=== PATIENT | male | born 1995 | race Caucasian/White ===

== ENCOUNTER 2024-12-26 20:20 | Inpatient (IN) | payer OTHER ==
[2024-12-26 21:26] LABS: HEMATOCRIT 44.8 % (35.4-49); HEMOGLOBIN 15.2 G/dL (11.7-16.9); MCHC 33.9 g/dl (32.0-35.9); MEAN CELL VOLUME 91.4 fl (80-96); MEAN PLT VOLUME 8.4 fl (7.5-11.1); PLATELET COUNT 342.2 10^3/uL (134-434); RDW 12.5 % (11.9-15.9); WHITE BLOOD COUNT 12.3 10^3/uL (4.0-10.8)
[2024-12-26 22:08] LABS: ALBUMIN 4.7 g/dl (3.4-5.0); BILIRUBIN,TOTAL 0.5 mg/dl (0.2-1); TOT PROT 7.8 g/dl (6.4-8.2)
[2024-12-26] MEDS ORDERED: ACETAMINOPHEN INJECTION 100 ML ONE (22:49)
[2024-12-26] MEDS: ACETAMINOPHEN 1000 MG/100 ML BAG IVPB ONE (23:04)
[2024-12-26] MEDS ORDERED: PIPERACILLIN/TAZOBACTAM 3.375 GM VIAL IVPB ONE (23:52)
[2024-12-26] MEDS: PIPERACILLIN/TAZOB 3.375 GM 3.375 GM in DEXTROSE 5%-WATER - 50 ML IVPB ONE (23:57)
[2024-12-27 01:52] VITALS: BMI 31.6
[2024-12-27] MEDS: DEXTROSE 5%-0.45% SALINE 1,000 ML IV SCH (03:18)
[2024-12-27] MEDS: ACETAMINOPHEN 1000 MG/100 ML BAG IVPB PRN ×2 (05:54→14:08)
[2024-12-27 07:58] LABS: CALCIUM 9.7 mg/dl (8.5-10.1); CREATININE 1.1 mg/dl (0.6-1.3); POTASSIUM 3.9 mmol/L (3.5-5.1)
[2024-12-27 08:05] LABS: HIV INTERPRETATION NEGATIVE (NEGATIVE)
[2024-12-27] MEDS: PIPERACILLIN/TAZOB 3.375 GM 50 ML IVPB SCH (10:35)
[2024-12-27 10:37] LABS: BASO % 0.6 % (0-2.0); EOS % 1.5 % (0-4.5); HEMATOCRIT 43.4 % (35.4-49); HEMOGLOBIN 14.8 GM/dL (11.7-16.9); LYMPH % 14.8 % (8-40); MCH 30.9 pg (25.7-33.7); MEAN CELL VOLUME 90.8 fl (80-96); MEAN PLT VOLUME 8.3 fl (7.5-11.1); MONO % 10.3 % (3.8-10.2); NEUT % 72.8 % (42.8-82.8); PLATELET COUNT 323 10^3/uL (134-434); RBC 4.78 M/mm3 (4.00-5.60); WHITE BLOOD COUNT 12.1 K/mm3 (4.0-10.0)
[2024-12-27] MEDS: POLYETHYLENE GLYCOL (HEALTHYLAX) 3350 17 GM PACKET PO SCH (11:53)
[2024-12-27] MEDS ORDERED: MIDAZOLAM HCL 2 MG/2 ML SINGLE DOSE VIAL ONE (12:56)
[2024-12-27] MEDS ORDERED: PROPOFOL 20 ML ONE (12:56)
[2024-12-27] MEDS: PIPERACILLIN/TAZOB 3.375 GM 3.375 GM in DEXTROSE 5%-WATER - 50 ML IVPB SCH (18:31)
[2024-12-28 07:35] LABS: ALBUMIN 4.1 g/dl (3.4-5.0); BILIRUBIN,TOTAL 0.7 mg/dl (0.2-1); CALCIUM 9.3 mg/dl (8.5-10.1); TOT PROT 6.9 g/dl (6.4-8.2)
[2024-12-28 09:38] LABS: BASO % 0.5 % (0-2.0); HEMATOCRIT 43.7 % (35.4-49); HEMOGLOBIN 14.4 GM/dL (11.7-16.9); LYMPH % 14.5 % (8-40); MCH 30.2 pg (25.7-33.7); MEAN CELL VOLUME 91.4 fl (80-96); MEAN PLT VOLUME 8.5 fl (7.5-11.1); MONO % 9.4 % (3.8-10.2); NEUT % 74.6 % (42.8-82.8); PLATELET COUNT 350 10^3/uL (134-434); RBC 4.78 M/mm3 (4.00-5.60); RDW 12.2 % (11.9-15.9); WHITE BLOOD COUNT 13.7 K/mm3 (4.0-10.0)
[2024-12-28] MEDS ORDERED: ACETAMINOPHEN 1000 MG/100 ML BAG IVPB PRN (11:01)
[2024-12-28] MEDS ORDERED: MIDAZOLAM HCL 2 MG/2 ML SINGLE DOSE VIAL ONE ×2 (11:54→12:53)
[2024-12-28] MEDS ORDERED: PROPOFOL 20 ML ONE ×2 (12:10→12:58)
[2024-12-28] MEDS ORDERED: PROMETHAZINE HCL 25 MG/1 ML VIAL IVPB PRN ×2 (12:18→15:24)
[2024-12-28] MEDS ORDERED: ONDANSETRON 4 MG/2 ML VIAL IVPUSH PRN ×2 (12:18→15:24)
[2024-12-28] MEDS ORDERED: DEXAMETHASONE SOD PHOSPHATE 4 MG/1 ML VIAL ONE (13:08)
[2024-12-28] MEDS ORDERED: KETOROLAC TROMETHAMINE 30 MG/1 ML VIAL ONE (13:09)
[2024-12-28] MEDS ORDERED: ACETAMINOPHEN INJECTION 100 ML ONE (13:09)
[2024-12-28] MEDS ORDERED: ONDANSETRON 4 MG/2 ML VIAL ONE (13:41)
[2024-12-28] MEDS ORDERED: FENTANYL CITRATE/PF 50 MCG/ML VIAL ONE (14:09)
[2024-12-28] MEDS: oxyCODONE HCL 5 MG TABLET PO PRN (14:59)
[2024-12-28] MEDS: LACTATED RINGERS SOLUTION 1,000 ML IV SCH (16:29)
[2024-12-28] MEDS ORDERED: PIPERACILLIN/TAZOB 3.375 GM 3.375 GM in DEXTROSE 5%-WATER - 50 ML IVPB SCH (18:00)
[2024-12-28] MEDS: PIPERACILLIN/TAZOB 3.375 GM 3.375 GM in DEXTROSE 5%-WATER - 50 ML IVPB SCH (18:30)
[2024-12-28] MEDS: POLYETHYLENE GLYCOL (HEALTHYLAX) 3350 17 GM PACKET PO SCH (21:13)
[2024-12-29] MEDS: LACTATED RINGERS SOLUTION 1,000 ML IV SCH (05:52)
[2024-12-29 06:13] VITALS: BP 127/80; PULSE 74; RESP 18; TEMP 98.4
[2024-12-29] MEDS: ACETAMINOPHEN 1000 MG/100 ML BAG IVPB PRN (07:07)
[2024-12-29 10:35] LABS: HEMATOCRIT 41.4 % (35.4-49); HEMOGLOBIN 14.1 GM/dL (11.7-16.9); MCH 30.6 pg (25.7-33.7); MEAN CELL VOLUME 90.2 fl (80-96); MEAN PLT VOLUME 8.1 fl (7.5-11.1); PLATELET COUNT 337 10^3/uL (134-434); RBC 4.59 M/mm3 (4.00-5.60); RDW 11.9 % (11.9-15.9); WHITE BLOOD COUNT 12.2 K/mm3 (4.0-10.0)
== END 2024-12-29 12:42 | disposition home or self-care (01) | DRG 223 ==
LOC: FER 20:20 → FM/S 12-27 00:29 → INTOOBSV 12-27 00:29 → FM/S 12-27 00:31 → UNDOADMIN 12-27 00:31 → OBSVTOIN 12-27 13:02
PROVIDERS: ADMIT Student in an Organized Health Care Education/Training Program
PROC: 0D9P00Z Drainage of Rectum with Drainage Device, Open Approach (ICD-10-PCS; principal; 2024-12-28 13:21)
DX: K61.0 Anal abscess (principal); E78.5 Hyperlipidemia, unspecified
CPT/HCPCS: 36415; 74177-TC; 80048; 80053; 83036; 85025; 85027; 86803; 87040; 87070; 87076; 87186; 87205; 87389; 94760; 99285-25; G0378; J0131; Q9967